=== PATIENT | male | born 1995 | race Two or more races ===

== ENCOUNTER → 2021-09-23 | Outpatient (CLI) | payer SELFPAY ==
[~2021-09-23] MED LIST: AMOX1TAB61 PO
== END ==
LOC: LAB 16:41
DX: Z02.83 Encounter for blood-alcohol and blood-drug test (principal)
CPT/HCPCS: 36415

== ENCOUNTER 2021-09-28 12:49 | Emergency (ER) | payer SELFPAY ==
[~2021-09-28] VITALS: Ht 188 cm; Wt 81.0 kg
[2021-09-28 13:11] VITALS: BP 128/77
--- NOTE | 2021-09-28 13:21 | RAD ---
Exam Date: 09/28/2021 12:[address] HEAD AND MAXILLOFACIAL WO Indication: Reason: fall / Spl. Instructions: / History: . One or more of the following dose reduction techniques were utilized: *Automated exposure control (AEC) *Adjustment of mA and/or kV according to patient size *Use of iterative reconstruction technique *CT scan done according to ALARA, or ALARA/IMAGE GENTLY EXAMINATION: CT OF THE HEAD WITHOUT CONTRAST INDICATION: Trauma, head injury, headache; TECHNIQUE: Noncontrast helical axial CT images of the head were obtained. FINDINGS: The ventricles and sulci are normal for the patient's stated age. There is no evidence of acute int racranial hemorrhage, extra-axial collection, mass effect, midline shift, or acute territorial infarc t. No lesion of the skull base or the calvarium is seen. IMPRESSION: No evidence for acute intracranial abnormality. EXAMINATION: MAXILLOFACIAL CT WITHOUT CONTRAST CLINICAL INDICATION: Maxillofacial pain after trauma TECHNIQUE: Helical axial CT images through the maxillofacial bones were obtained without contrast. So urce data were reconstructed into the sagittal and coronal planes. FINDINGS: There are comminuted mildly displaced bilateral nasal bone fractures. There are comminuted mildly di splaced acute fractures of the anterior wall of the left maxillary sinus with extension to the left o rbital floor. There is no evidence for retrobulbar content herniation or extraocular muscle entrapme nt. There is prominent soft tissue swelling around the nose and left maxilla. Globes are intact bilaterally. Extraocular muscles and optic nerves are normal and symmetric bilater ally. The mandible appears intact. The nasal septum is intact and near midline. The visualized mastoid air cells appear clear. IMPRESSION: Acute comminuted displaced fractures of the left maxillary sinus with extension to the left orbital f michael. No evidence for retrobulbar content herniation or extraocular muscle entrapment. Bilateral displaced acute nasal bone fractures. Electronically signed by: Jim Cooney MD (09/28/2021 1:19 PM) [facility]
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
[2021-09-28] MEDS ORDERED: AMOX1TAB61 PO (15:36)
== END 2021-09-28 15:41 | disposition home or self-care (01) ==
LOC: ER 12:49
DX: S02.40DB Maxillary fracture, left side, initial encounter for open fracture (principal); S02.32XA Fracture of orbital floor, left side, initial encounter for closed fracture; S02.2XXA Fracture of nasal bones, initial encounter for closed fracture; Y08.89XA Assault by other specified means, initial encounter; Y93.89 Activity, other specified; Y92.89 Other specified places as the place of occurrence of the external cause; Y99.8 Other external cause status
CPT/HCPCS: 70450; 70486; 99284